=== PATIENT | male | born 1955 | race Asian ===

== ENCOUNTER 2017-08-29 01:55 | Emergency (ER) | payer BC ==
[~2017-08-29] VITALS: Ht 167.6 cm; Wt 68.0 kg
--- NOTE | 2017-08-29 01:55 | NUR ---
PT BIBA BLS TO ER BED 04
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
[2017-08-29 01:57] VITALS: BP 104/55
[2017-08-29] MEDS ORDERED: NACL 0.9% 1,000 ML IV ONE (02:00)
[2017-08-29] MEDS: ONDANSETRON 4 MG/2 ML VIAL IVP ONE ×2 (02:05→02:22)
[2017-08-29 02:08] LABS: BASOPHILS # (AUTO) 0.3 K/uL (0.00-0.22); BASOPHILS % (AUTO) 3.3 % (0.0-2.0); EOSINOPHILS # (AUTO) 0.1 K/uL (0-0.4); HEMATOCRIT 44.4 % (36-52); HEMOGLOBIN 14.7 g/dL (12.0-18.0); LYMPHOCYTES # (AUTO) 0.7 K/uL (2.0-11.5); LYMPHOCYTES % (AUTO) 6.4 % (20.5-51.1); MEAN CORPUSCULAR HEMOGLOBIN 30 pg (27-31); MEAN CORPUSCULAR HGB CONC 33 g/dL (33-37); MEAN CORPUSCULAR VOLUME 90.2 fL (80-94); MONOCYTES # (AUTO) 0.6 K/uL (0.8-1.0); MONOCYTES % (AUTO) 6.1 % (1.7-9.3); NEUTROPHILS # (AUTO) 8.5 K/uL (1.8-7.7); NEUTROPHILS % (AUTO) 83.2 % (42.2-75.2); PLATELET COUNT (AUTO) 239 K/uL (140-450); RED BLOOD CELL COUNT(AUTO) 4.93 MIL/uL (4.20-6.10); RED CELL DISTRIBUTION WIDTH 11.9 % (11.6-13.7); WHITE BLOOD COUNT (AUTO) 10.2 K/uL (4.8-10.8)
--- NOTE | 2017-08-29 02:08 | NUR ---
[facility] NOT AVAILABLE IN ER MARCELO SHAFER CALLED AND MADE AWARE
[2017-08-29] MEDS ORDERED: ONDANSETRON 4 MG/2 ML VIAL ONE (02:12)
[2017-08-29 02:17] LABS: ANION GAP 19.5 (8-16); CARBON DIOXIDE 20.8 mmol/L (21-32); CREATININE 1.2 mg/dL (0.7-1.3); POTASSIUM 3.3 mmol/L (3.5-5.1)
[2017-08-29 02:23] LABS: TOTAL BILIRUBIN 0.6 mg/dL (0.0-1.0)
[2017-08-29] MEDS ORDERED: METOCLOPRAMIDE 10 MG/2 ML INJ VIAL IVP ONE (02:25)
[2017-08-29 03:10] VITALS: BP 100/60
--- NOTE | 2017-08-29 03:13 | NUR ---
Patient discharged with v/s stable. Written and verbal after care instructions given and explained. Patient verbalized understanding. Ambulatory with steady gait. All questions addressed prior to discharge. Advised to follow up with PMD.
== END 2017-08-29 03:13 | disposition home or self-care (01) ==
LOC: MED 01:55
DX: F10.129 Alcohol abuse with intoxication, unspecified (principal); E78.00 Pure hypercholesterolemia, unspecified
CPT/HCPCS: 36415; 80053; 85025; 96361; 96374; 99284; G0482; J2405